=== PATIENT | female | born 1985 | race African-American/Black ===

== ENCOUNTER 2017-09-15 00:20 | Emergency (ER) | payer MEDICAID ==
[~2017-09-15] VITALS: Ht 175.3 cm; Wt 145.0 kg
[2017-09-15 00:24] VITALS: BP 168/106; PULSE 113; RESP 18; TEMP 101; O2SAT 100
== END 2017-09-15 04:00 | disposition left against medical advice (07) ==
LOC: NED 00:20
DX: Z53.21 Procedure and treatment not carried out due to patient leaving prior to being seen by health care provider (principal)
CPT/HCPCS: 99281

== ENCOUNTER 2017-11-13 12:56 | Emergency (ER) | payer SELFPAY ==
[~2017-11-13] VITALS: Ht 175.3 cm; Wt 133.0 kg
[2017-11-13 13:01] VITALS: BP 134/84; PULSE 80; RESP 16; TEMP 98.5; O2SAT 99
--- NOTE | 2017-11-13 13:53 | PD ---
HPI Chief Complaint: Musculoskeletal Complaint Time Seen by Provider: 13:45 Travel History International Travel<30 days: No Contact w/Intl Traveler<30days: No Traveled to known affect area: No History of Present Illness HPI 32 old female here with nontraumatic left knee pain 1 day. She reports constant, throbbing, nonradiating localized to the anterior aspect of the knee. Denies fever chills. No swelling of the leg. Has had one similar episode in the past which spontaneously resolved. Symptom severity is moderate. Aggravated by flexion and weightbearing. Slightly relieved with rest and elevation. PFSH Past Medical History Bipolar Disorder: Yes Depression: Yes Diminished Hearing: No Hypertension: Yes Tetanus Vaccination: Unknown Influenza Vaccination: Yes ?: Not LMP: LAST WEEK Menopausal: No : 2 Para: 2 Miscarriage: 0 : 0 Past Surgical History Section: Yes (2003 and 2006) Other Surgery: Yes (PINS IN HIP: AGE 10) Social History Alcohol Use: No Tobacco Use: No Substance Use: No Allergies-Medications (Allergen,Severity, Reaction): Coded Allergies: Sulfa (Sulfonamide Antibiotics) (Unverified Allergy, Severe, unknown, 11/13) Reported Meds & Prescriptions Reported Meds & Active Scripts Active Ultram (Tramadol HCl) 50 Mg Tab 50 Mg PO Q6H PRN Ibuprofen 800 Mg Tab 800 Mg PO Q6HR PRN Review of Systems Except as stated in HPI: all other systems reviewed are Neg General / Constitutional: No: Fever Eyes: No: Visual changes HENT: No: Headaches Cardiovascular: No: Chest Pain or Discomfort Respiratory: No: Shortness of Breath Gastrointestinal: No: Abdominal Pain Genitourinary: No: Dysuria Physical Exam Narrative GENERAL: Alert and well-appearing 32-year-old female SKIN: Warm and dry. No warmth or erythema HEAD: Normocephalic. EYES: No scleral icterus. No injection or drainage. NECK: Supple, trachea midline. No JVD or lymphadenopathy. CARDIOVASCULAR: Regular rate and rhythm without murmurs, gallops, or rubs. RESPIRATORY: Breath sounds equal bilaterally. No accessory muscle use. GASTROINTESTINAL: Abdomen soft, non-tender, nondistended. MUSCULOSKELETAL: No cyanosis. Left lower extremity: +ttp anterior knee with mild swelling. No warmth or erythema. No posterior knee pain. No calf tenderness. Negative Homans sign. Palpable DP pulse. Normal coloration. Normal sensation. brisk cap refill BACK: Nontender without obvious deformity. No CVA tenderness. Data Data Last Documented VS Vital Signs Date Time Temp Pulse Resp B/P (MAP) Pulse Ox O2 Delivery O2 Flow Rate FiO2 11/13/17 13:01 98.5 80 16 134/84 (101) 99 Orders Orders Knee, Complete (4vws) (11/13/17 ) Ketorolac Inj (Toradol Inj) (11/13/17 14:15) MDM Medical Decision Making Medical Screen Exam Complete: Yes Emergency Medical Condition: Yes Differential Diagnosis Knee sprain, strain, fracture, arthritis, septic arthritis unlikely Narrative Course 32-year-old female with nontraumatic left knee pain. The anterior knee is mildly swollen. No warmth or erythema. No open wounds. Vital signs are stable. I do not suspect infectious cause. X-rays negative for fracture. Effusion is noted. She will be treated with NSAIDs and she is instructed to follow-up with her primary doctor. Return if she develops new or worsening symptoms Diagnosis Primary Impression: Knee pain Qualified Codes: M25.562 - Pain in left knee Referrals: Primary Care Physician Additional Instructions: Medication as directed. Ice and elevate the extremity. Francis wrap as directed. Crutches for weightbearing. Follow-up the primary doctor. Scripts Tramadol (Ultram) 50 Mg Tab 50 MG PO Q6H Y for PAIN, #10 TAB 0 Refills Prov: Phyllis Yusuf 11/13/17 Ibuprofen (Ibuprofen) 800 Mg Tab 800 MG PO Q6HR Y for PAIN, #40 TAB 0 Refills Prov: Phyllis Yusuf 11/13/17 Disposition: 01 DISCHARGE HOME Condition: Stable Phyllis Yusuf Nov 13, 2017 13:53
[2017-11-13] MEDS ORDERED: KETOROLAC TROMETHAMINE 60 MG/2 ML (IM) VIAL IM ONE (14:15)
--- NOTE | 2017-11-13 14:41 | RADRPT ---
EXAM DATE/TIME: 11/13/2017 14:02 [facility] COMPARISON: No previous studies available for comparison. INDICATIONS : Onset of severe left knee pain, no known injury MEDICAL HISTORY : None. SURGICAL HISTORY : None. ENCOUNTER: Initial ACUITY: 3 days PAIN SCORE: 9/10 LOCATION: Left knee TECH NOTE: Denies , shield ROVERTO Robledo MR#[id number] :85 Exam date/desc:November 13, 2017 KNEE LEFT COMPLETE (4VWS) FINDINGS: Four view examination of the left knee demonstrates no evidence of fracture or dislocation. Bony min eralization is normal. Early osteoarthritic changes with marginal spurs of the femoral condyle latera lly and medially. Moderate suprapatellar effusion. CONCLUSION: 1. Early osteoarthritic changes. 2. Moderate size suprapatellar effusion with no acute fracture. Reyes Melo MD on November 13, 2017 at 14:38 Board Certified Radiologist. This report was verified electronically.
[2017-11-13] MEDS ORDERED: IBUP1TAB7 PO (14:43)
[2017-11-13] MEDS ORDERED: TRAM50 PO (14:43)
== END 2017-11-13 14:58 | disposition home or self-care (01) ==
LOC: PHEFT 12:56
DX: M25.562 Pain in left knee (principal); F31.9 Bipolar disorder, unspecified; I10 Essential (primary) hypertension
CPT/HCPCS: 73564; 96372; 99283; J1885